=== PATIENT | male | born 1945 | race Caucasian/White ===

== ENCOUNTER 2021-06-05 08:05 | Day surgery (SDC) | payer OTHER ==
[2021-06-05] MEDS ORDERED: Ringers Lactate 1,000 ML IV ONE (08:12)
[2021-06-05] MEDS ORDERED: FENTANYL CITR 100 MCG/2 ML ONE (09:06)
[2021-06-05] MEDS ORDERED: MIDAZOLAM HCL 2 MG/2 ML INJ ONE (09:06)
[2021-06-05] MEDS ORDERED: propofoL 200 MG/20 ML VIAL IV ONE (09:06)
[2021-06-05] MEDS ORDERED: ROCURONIUM 50 MG/5 ML VIAL IV ONE (09:07)
[2021-06-05] MEDS ORDERED: LIDOCAINE 2% MPF 5 ML VIAL ONE (09:07)
[2021-06-05] MEDS ORDERED: dexAMETHasone 10 MG/ML VIAL ONE ×2 (09:07→12:00)
[2021-06-05] MEDS ORDERED: BOTU TOX TYPE A 100 UNIT/VIAL ID ONE (10:55)
[2021-06-05] MEDS ORDERED: EPINEPHRINE/PF 1 MG/ML AMP ONE (10:58)
[2021-06-05] MEDS ORDERED: LIDOCAINE 1% W/EPI 1:100,000 10 ML VIAL ONE (10:59)
[2021-06-05] MEDS ORDERED: NS 0.9% VIAL 10 ML ONE (11:48)
[2021-06-05] MEDS ORDERED: ONDANSETRON 4 MG/2 ML VIAL ONE (12:00)
[2021-06-05] MEDS ORDERED: Phenylephrine HCl 10 MG/ML 1 ML VIAL ONE (12:08)
[2021-06-05] MEDS ORDERED: GLYCOPYRROLATE 0.2 MG/ML SYR ONE (12:10)
[2021-06-05] MEDS ORDERED: SUGAMMADEX SODIUM 200 MG/2 ML VIAL IV ONE (12:17)
--- NOTE | 2021-06-05 12:20 | P.OP ---
Mandrel Press Hand: NONE,NONE Preoperative diagnosis: Dysphagia, cricopharyngeal spasm Postoperative diagnosis: Same Primary procedure: Rigid esophagoscopy with injection of botulinum toxin to the cricopharyngeu Anesthesia: General Estimated blood loss: No Specimen: None Findings: Prominent CP muscle, 28 units in 4 injections of 7 units each Operative Technique: Patient is brought to the operating room. He is placed under general anesthesia via oral endotracheal tube. Shoulder roll is placed and the neck is extended with support of the head. A rubber tooth guard was placed over the upper dentition. The Kelton laryngoscope was used to perform direct laryngoscopy and examination of the larynx is unremarkable. The Kelton is of insufficient length to give access to the upper portion of the esophagus. It is removed and set aside. The rigid cervical esophagoscope was prepared with appropriate lighting and passed through the mouth, oral cavity, oropharynx and into the esophageal introitus. In the uppermost portion of the esophagus, the cricopharyngeus is noted to be prominent creating a cricopharyngeal bar on the posterior aspect of the esophagus. The scope is gently passed through the introitus to the full length of its length. Within the esophagus there are some milky secretions. After suctioning there is no obvious mucosal mass, ulcerati on, or other significant abnormality. The gastroesophageal junction is not examined due to the length of the scope. The scope was then withdrawn for visualization of the cricopharyngeus muscle. Botox medical grade botulinum toxin is reconstituted with 1.4 mL of sterile saline for concentration of 7 units per 0.1 mL. This is loaded into a syringe and the side kick injection needle is attached. The needle was passed through the esophagus the scope under direct visualization and used to inject at approximately 9:00, 7:00, 5:00 and 3:00 with each injection composed of 0.1 mL of botulinum solution. After completion of injection the esophagoscope is again passed to its full length for reexamination of the esophagus. On slow withdrawal the area of injection is examined and there is no evidence of any bleeding. The scope and the mouth guard is removed and the patient was returned to care of anesthesia for awakening and extubation in the operating room which proceeded without difficulty. Complications: None Fluids & blood products: See anesthesia record Transferred to: Recovery Room Condition: Good
[2021-06-05 12:39] VITALS: O2SAT 100
[2021-06-05 14:12] VITALS: BP 159/60; TEMP 97.3
== END 2021-06-05 14:28 | disposition home or self-care (01) ==
LOC: OR 08:05
PROVIDERS: ATTEND Otolaryngology
PROC: 3E0G8GC Introduction of Other Therapeutic Substance into Upper GI, Via Natural or Artificial Opening Endoscopic (ICD-10-PCS; principal; 2021-06-05 09:30)
DX: I69.391 Dysphagia following cerebral infarction (principal); R13.10 Dysphagia, unspecified; I69.291 Dysphagia following other nontraumatic intracranial hemorrhage; Z20.822 Contact with and (suspected) exposure to COVID-19
CPT/HCPCS: 93005; 43192; U0003; J2704; J2370; J0585; J3010; J1100; J7120; J2405; J0171; J2250

== ENCOUNTER 2024-06-15 06:45 | Inpatient (IN) | payer OTHER ==
[2024-06-12 14:46] LABS: Absolute Basophils 0.1 K/uL (0-0.5); Absolute Eosinophils 0.1 K/uL (0-0.5); Absolute Lymphocytes (CBC) 0.8 K/uL (0.7-4.9); Absolute Monocytes 0.3 K/uL (0.1-1.3); Basophils % 1.3 % (0-1.3); Eosinophils % 1.1 % (0-4.4); Hematocrit 41.9 % (39.6-49.0); Hemoglobin 14.2 g/dL (13.6-17.9); Lymphocytes % 15.7 % (15.3-44.8); MCH 29.4 pg (27.0-35.0); MCHC 33.9 g/dL (32.0-36.0); MCV 86.9 fL (80-100); MPV 8.1 fL (7.6-11.3); Monocytes % 6.2 % (3.3-12.3); Neutrophils % 75.7 % (41.7-73.7); Platelets 286 thou/uL (152-406); RBC Red Blood Cell Count 4.82 M/uL (4.33-5.43); Red Cell Distribution Width 15.5 % (12.1-15.2)
--- NOTE | 2024-06-12 14:52 | RAD REPORT ---
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 No pleural effusions or pneumothorax. No pulmonary edema. MEDIASTINUM: The mediastinal silhouette is within normal limits CARDIAC: The cardiac silhouette is within normal limits. UPPER ABDOMEN: No significant abnormality. BONES: No acute abnormality. LINES/TUBES/OTHER: N/A IMPRESSION: No evidence of acute cardiopulmonary disease.
[2024-06-12 17:00] LABS: PT Prothrombin Time 11.6 SECONDS (9.4-12.5); Protime INR 1.11
[2024-06-15] MEDS: NA CHLORIDE 0.9% 500 ML ONE (06:50)
[2024-06-15] MEDS ORDERED: HEPARIN 10,000 UNIT/10 ML VIAL IV ONE (07:06)
[2024-06-15] MEDS ORDERED: LIDOCAINE 1% 20 ML MDV ONE (07:06)
[2024-06-15] MEDS ORDERED: HEPA 1000U/500MLS 2,000 UNIT/1,000 ML BAG IV ONE (07:06)
[2024-06-15] MEDS ORDERED: ATROPINE SULF 1 MG/10 ML SYR IV ONE (07:07)
[2024-06-15] MEDS ORDERED: MIDAZOLAM HCL 2 MG/2 ML INJ ONE (07:07)
[2024-06-15] MEDS ORDERED: FENTANYL CITR 100 MCG/2 ML ONE (07:07)
--- NOTE | 2024-06-15 08:47 | OP ---
Date of Procedure: 06/15/2024 Surgeon: SHAWANDA PARSON Procedure Performed: Bilateral selective carotid angiogram. Indication: Carotid stenosis. Access: Right common femoral artery 5-Taiwanese, closed with 5-Taiwanese Mynx closure device. Complications: None. Bleeding: Less than 50 mL. Anesthesia: Total sedation time is none. No sedation was given. Description Of Procedure: After risks, benefits, and alternatives were explained, the patient agreed to procedure and signed informed consent. [facility] prepped and draped in sterile fashion, then I accessed right common femoral artery using micr opuncture kit, ultrasound guidance, fluoroscopy, placed 5-Taiwanese Hatch sheath and took a 4-Taiwanese 3DRC catheter into the aortic root and engaged right common carotid artery, took standard views in th e left common carotid artery, took standard views and removed the catheter and the sheath and 5-Frenc h Mynx closure device was used for closure with good hemostasis. Findings: 1. Right common carotid is normal. Right internal carotid has a long stenosis about 70%. 2. Left common carotid is normal. Left internal carotid and external carotids are normal with minima l plaque formation. Conclusion: Severe right internal carotid artery stenosis. Recommendation: Endarterectomy. /KATHY Voice ID: [id number] Report ID: [id number]
[2024-06-15] MEDS ORDERED: AMIODARONE HCL 450 MG in D5W 241 ML IV SCH (11:00)
[2024-06-15] MEDS: AMIODARONE HCL 150 MG in D5W 100 ML IV STA (11:15)
[2024-06-15 11:27] VITALS: BMI 23.7
[2024-06-15] MEDS: AMIODARONE HCL 900 MG in Dextrose 5%-Water 482 ML IV SCH (11:35)
[2024-06-15] MEDS: PNEUMOCOCCAL VACCINE 0.5 ML IMVAC ONE (11:41)
[2024-06-15] MEDS ORDERED: MORPHINE 2 MG/ML SYR IV PRN (12:07)
[2024-06-15] MEDS ORDERED: ONDANSETRON 4 MG/2 ML VIAL IV PRN (12:07)
[2024-06-15] MEDS: NA CHLORIDE 0.9% 1,000 ML IV SCH (16:32)
--- NOTE | 2024-06-15 19:07 | CON ---
Date of Consultation: 06/15/2024 Reason For Consultation: Atrial fibrillation with rapid ventricular response. History Of Present Illness: A 79-year-old male, history of carotid stenosis, had carotid angiogram t ofelia, and he was in atrial fibrillation and recovered it. The heart rate is up to 130 and 140. Petar es having any chest pain or shortness of breath. No nausea, vomiting, or diarrhea. Past Medical History: Carotid stenosis, hypertension. Medications: Refer reconciliation sheet for detailed list. Allergies: ALLERGIC TO CIPROFLOXACIN AND CEPHALEXIN. Family History: No premature coronary artery disease or cancer. Social History: Does not smoke or drink. Does not use any drugs. Review of Systems: All systems reviewed and they are negative except as mentioned in the HPI. Physical Examination: Vital Signs: Reviewed. Head and Neck: Pupils are equal, reactive to light. Intact eye movements. No JVD. No cervical lym phadenopathy. Neck is supple. Thyroid is not enlarged. Lungs: Clear to auscultation bilaterally. No rhonchi, wheezing, or crackles. No accessory muscle u se. Heart: Irregularly irregular. No extra sounds. Abdomen: Soft, nontender. Bowel sounds positive. No organomegaly. No masses or hernia. No rigidi ty or rebound. Extremities: No edema, clubbing, or cyanosis. Intact pulses. Skin: No rash. No nodule. Neurologic: Alert, awake, oriented x3. No acute focal deficits appreciated. Investigations: Hemoglobin is 14.2, BUN 19, creatinine 0.88. Assessment And Recommendations: 1. Atrial fibrillation, new onset. Load with amiodarone 150 mg over 10 minutes, then 1 mg/minute for 6 hours, and then 0.5 mg/minute for 16 hours and start the patient on Eliquis 5 mg twice a day and c an use IV metoprolol as needed for rate control. 2. Carotid stenosis, significant on the right. We will arrange for outpatient endarterectomy. SR/MODL Voice ID: [id number] Report ID: [id number]
[2024-06-16 04:41] VITALS: O2SAT 98
[2024-06-16 06:17] LABS: Absolute Eosinophils 0.1 K/uL (0-0.5); Absolute Lymphocytes (CBC) 0.8 K/uL (0.7-4.9); Absolute Monocytes 0.3 K/uL (0.1-1.3); Absolute Neutrophil 3.2 K/uL (1.8-8.0); Basophils % 0.8 % (0-1.3); Eosinophils % 1.3 % (0-4.4); Hemoglobin 11.9 g/dL (13.6-17.9); Lymphocytes % 17.4 % (15.3-44.8); MCV 87.8 fL (80-100); MPV 8.1 fL (7.6-11.3); Monocytes % 7.7 % (3.3-12.3); Neutrophils % 72.8 % (41.7-73.7); Nucleated Red Blood Cells % 0.1 % (0-0); Platelets 220 thou/uL (152-406); Red Cell Distribution Width 15.3 % (12.1-15.2)
[2024-06-16 06:20] LABS: PT Prothrombin Time 11.8 SECONDS (10.0-13.0); PTT, Activated Partial Thromb 34.4 SECONDS (24.3-36.9); Protime INR 1.04
[2024-06-16 06:34] LABS: Albumin 3.1 g/dL (3.4-5.0); Albumin/Globulin Ratio 1.2 (1.1-1.8); Bilirubin Total 0.5 mg/dL (0.2-1.0); Globulin 2.6 g/dL (2.3-3.5); Protein, Total 5.7 g/dL (6.4-8.2); Troponin High Sensitivity 16.5 pg/mL (<58.9)
[2024-06-16 08:16] VITALS: BP 119/56; TEMP 97.5
[2024-06-16] MEDS: AMIODARONE HCL 900 MG in Dextrose 5%-Water 482 ML IV SCH (08:44)
[2024-06-16] MEDS ORDERED: AMIODARONE HCL 200 MG TAB PO SCH (09:00)
[2024-06-16] MEDS ORDERED: METOPROLOL TAR 25 MG TAB PO SCH (09:00)
[2024-06-16] MEDS ORDERED: APIXABAN 5 MG TABLET PO SCH (09:00)
--- NOTE | 2024-06-16 09:08 | P.HP ---
Certification for Inpatient Patient admitted to: Observation With expected LOS: <2 Midnights Patient will require the following post-hospital care: None Practitioner: I am a practitioner with admitting privileges, knowledge of patient current condition, hospital course, and medical plan of care. Services: Services provided to patient in accordance with Admission requirements found in Title 42 Section 412.3 of the Code of Federal Regulations Patient History Date of Service: 06/15/24 Reason for admission: Atrial fibrillation with rapid ventricular sponsor History of Present Illness: Patient is an 81-year-old gentleman who came to the hospital for carotid artery angiogram. Patient was found to have severe right carotid artery disease at about 70%. However, during the procedure patient was in atrial fibrillation with rapid ventricular response. After the procedure patient was admitted to our service for A-fib with RVR on amiodarone drip. Patient states has been having some palpitations on and off. He feels like this could be related to his atrial fibrillation that he was never able to appreciate. Patient also has a history of TIA. At this time, patient will be admitted to the hospital for further evaluation. Allergies cephalexin Allergy (Verified 06/12/24 14:08) Nausea/Vomiting ciprofloxacin Allergy (Verified 06/12/24 14:08) Nausea/Vomiting Home Medications: Finasteride 1 tab PO DAILY 06/04/21 Pravastatin [Pravachol*] 1 tab PO BEDTIME 06/04/21 Tamsulosin [Flomax*] 1 tab PO DAILY 06/04/21 Montelukast [Singulair*] 1 tab PO DAILY 06/15/24 Amiodarone HCl [Cordarone*] 200 mg PO BID #60 tab 06/16/24 Apixaban [Eliquis] 5 mg PO BID #60 tab 06/16/24 Metoprolol Tartrate [Lopressor*] 25 mg PO BID #60 tab 06/16/24 - Past Medical/Surgical History Has patient received pneumonia vaccine in the past: No -: HTN -: CAD, -: occulsion to right carotid -: Hyperlipidemia -: Aortic valve insufficiency Past Surgical History: Patient denies surgical history - Family History Father Family History: Reviewed- Non-Contributory - Social History Smoking Status: Never smoker Alcohol use: No CD- Drugs: No Caffeine use: Yes Place of Residence: Home Review of Systems 10-point ROS is otherwise unremarkable Physical Examination - Vital Signs Temperature: 97.5 F Blood Pressure: 119/56 Pulse: 67 Respirations: 19 Pulse Ox (%): 98 - Physical Exam General: Alert, In no apparent distress, Oriented x3 HEENT: Atraumatic, PERRLA, Mucous membr. moist/pink, EOMI, Sclerae nonicteric Neck: Supple, 2+ carotid pulse no bruit, No LAD, Without JVD or thyroid abnormality Respiratory: Clear to auscultation bilaterally, Normal air movement Cardiovascular: Regular rate/rhythm, Normal S1 S2 Gastrointestinal: Normal bowel sounds, Soft and benign, Non-distended, No tenderness Musculoskeletal: No clubbing, No swelling, No tenderness Integumentary: No rashes Neurological: Normal gait, Normal speech, Normal strength at 5/5 x4 extr, Normal tone, Sensation intact, Cranial nerves 3-12 intact, Normal affect Lymphatics: No axilla or inguinal lymphadenopathy - Studies Laboratory Data (last 24 hrs) 06/16/24 06/16/24 06/16/24 05:50 05:50 05:50 WBC 4.40 Hgb 11.9 L Hct 36.0 L Plt Count 220 PT 11.8 INR 1.04 APTT 34.4 Sodium 138 Potassium 4.0 BUN 21 H Creatinine 0.85 Glucose 89 Total Bilirubin 0.5 AST 17 ALT 15 L Alkaline Phosphatase 59 Triglycerides 87 Cholesterol 110 HDL Cholesterol 37 L Cholesterol/HDL Ratio 2.97 Assessment & Plan - Problems (Diagnosis) (1) Atrial fibrillation with rapid ventricular response Current Visit: Yes Status: Acute (2) Carotid artery disease Current Visit: Yes Status: Acute - Plan Plan: 1. Atrial fibrillation with rapid ventricular spots; continue with medication for rate control and anticoagulation 2. Carotid artery stenosis; outpatient carotid endarterectomy. Discharge Plan: Home Plan to discharge in: 24 Hours - Advance Directives Does patient have a Living Will: No Does patient have a Durable POA for Healthcare: No - Code Status/Comfort Care Code Status Assessed: Yes Code Status: Full Code Critical Care: No Time Spent Managing PTS Care (In Minutes): 45
--- NOTE | 2024-06-16 09:14 | P.DS ---
Discharge Date: 06/16/24 Disposition: ROUTINE DISCHARGE Discharge Condition: GOOD Reason for Admission: Atrial fibrillation with rapid ventricular sponsor - Problems (1) Atrial fibrillation with rapid ventricular response Current Visit: Yes Status: Acute (2) Carotid artery disease Current Visit: Yes Status: Acute Brief History of Present Illness: Patient is an 81-year-old gentleman who came to the hospital for carotid artery angiogram. Patient was found to have severe right carotid artery disease at abo ut 70%. However, during the procedure patient was in atrial fibrillation with rapid ventricular response. After the procedure patient was admitted to our service for A-fib with RVR on amiodarone drip. Patient states has been having some palpitations on and off. He feels like this could be related to his atrial fibrillation that he was never able to appreciate. Patient also has a history of TIA. At this time, patient will be admitted to the hospital for further evaluation. Hospital Course: Patient has done well during hospital stay. Patient's clinical symptoms have improved. Patient will continue with medical therapy as an outpatient. Patient will follow-up with consultants and PCP as an outpatient in 1 to 2 weeks. Vital Signs/Physical Exam: Temp Pulse Resp BP Pulse Ox 97.5 F 67 19 119/56 L 98 06/16/24 09:13 06/16/24 09:13 06/16/24 09:13 06/16/24 09:13 06/16/24 09:13 General: Alert, In no apparent distress, Oriented x3 Laboratory Data at Discharge: WBC 4.40 thou/uL (4.3-10.9) 06/16/24 05:50 Hgb 11.9 g/dL (13.6-17.9) L 06/16/24 05:50 Hct 36.0 % (39.6-49.0) L 06/16/24 05:50 Plt Count 220 thou/uL (152-406) 06/16/24 05:50 PT 11.8 SECONDS (10.0-13.0) 06/16/24 05:50 INR 1.04 06/16/24 05:50 APTT 34.4 SECONDS (24.3-36.9) 06/16/24 05:50 Sodium 138 mEq/L (136-145) 06/16/24 05:50 Potassium 4.0 mEq/L (3.5-5.1) 06/16/24 05:50 BUN 21 mg/dL (7-18) H 06/16/24 05:50 Creatinine 0.85 mg/dL (0.70-1.30) 06/16/24 05:50 Glucose 89 mg/dL (74-106) 06/16/24 05:50 Total Bilirubin 0.5 mg/dL (0.2-1.0) 06/16/24 05:50 AST 17 U/L (15-37) 06/16/24 05:50 ALT 15 U/L (16-61) L 06/16/24 05:50 Alkaline Phosphatase 59 U/L (45-117) 06/16/24 05:50 Triglycerides 87 mg/dL (<150) 06/16/24 05:50 Cholesterol 110 mg/dL (<200) 06/16/24 05:50 HDL Cholesterol 37 mg/dL (40-60) L 06/16/24 05:50 Cholesterol/HDL Ratio 2.97 06/16/24 05:50 Home Medications: Finasteride 1 tab PO DAILY 06/04/21 Pravastatin [Pravachol*] 1 tab PO BEDTIME 06/04/21 Tamsulosin [Flomax*] 1 tab PO DAILY 06/04/21 Montelukast [Singulair*] 1 tab PO DAILY 06/15/24 Amiodarone HCl [Cordarone*] 200 mg PO BID #60 tab 06/16/24 Apixaban [Eliquis] 5 mg PO BID #60 tab 06/16/24 Metoprolol Tartrate [Lopressor*] 25 mg PO BID #60 tab 06/16/24 New Medications: Amiodarone HCl [Cordarone*] 200 mg PO BID #60 tab Apixaban [Eliquis] 5 mg PO BID #60 tab Metoprolol Tartrate [Lopressor*] 25 mg PO BID #60 tab Physician Discharge Instructions: -DC IV and DC home -Follow-up with PCP in 1 to 2 weeks -Follow-up with Cardiology in 1 to 2 weeks -Please call Dr. Grover at [phone] if any questions regarding hospital stay -Please call nursing station at [phone] if any nursing or medication questions -Return to the emergency room if symptoms worsen -If patient takes carvedilol please discontinue Diet: AHA Activity: Fall precautions Followup: Rachael Cornejo, CHEMISTRY SPECIALIST [Primary Care Provider] - Time spent managing pt's care (in minutes): 30
--- NOTE | 2024-06-18 12:28 | EKG ---
Test Date: 2024-06-12 Test Time: 15:32:14 Systems Support Engineer: ALBERTO MEASUREMENT RESULTS: Intervals: Rate: 80 AL: 214 QRSD: 86 QT: 360 QTc: 415 Reliance: P: 74 AL: 214 QRS: 69 T: 68 INTERPRETIVE STATEMENTS: Sinus rhythm with 1st degree AV block with premature supraventricular complexes with occasional premature ventricular complexes Otherwise normal ECG Compared to ECG 06/04/2021 13:56:24 Atrial premature complex(es) now present Ventricular premature complex(es) now present First degree AV block now present Sinus bradycardia no longer present Left ventricular hypertrophy no longer present Electronically Signed On 06-18-24 12:17:12 [employer] by Kenji Correa
== END 2024-06-16 10:44 | disposition home or self-care (01) | DRG 68 ==
LOC: CCL 06:45 → 4TH 09:58
PROVIDERS: ADMIT Internal Medicine; ATTEND Hospitalist
PROC: B3151ZZ Fluoroscopy of Bilateral Common Carotid Arteries using Low Osmolar Contrast (ICD-10-PCS; principal; 2024-06-15)
DX: I65.21 Occlusion and stenosis of right carotid artery (principal); I10 Essential (primary) hypertension; E78.2 Mixed hyperlipidemia; I35.2 Nonrheumatic aortic (valve) stenosis with insufficiency; Z88.1 Allergy status to other antibiotic agents; Z79.82 Long term (current) use of aspirin; Z79.01 Long term (current) use of anticoagulants; Z86.73 Personal history of transient ischemic attack (TIA), and cerebral infarction without residual deficits; Z79.899 Other long term (current) drug therapy
CPT/HCPCS: 36222; 36415; 71046; 76937; 80048; 80053; 80061; 83880; 84484; 85025; 85610; 85730; 90471; 93005; C1760; C1893; J0282; J0461; J2003; J2250; J3010; J7030; J7040; J7060